=== PATIENT | male | born 1975 | race African-American/Black ===

== ENCOUNTER 2017-01-27 07:22 | Inpatient (IN) | payer OTHER ==
[~2017-01-27] VITALS: Ht 180.3 cm; Wt 78.2 kg
[2017-01-27] VITALS (10 sets, daily range): BP systolic 100–139; BP diastolic 44–83; Ht 180.3 cm; Wt 78.2 kg
[2017-01-27 08:36] LABS: BASOPHILS 0.3 % (0.0-2.0); EOSINOPHILS 1.2 % (0-7); HEMATOCRIT 42.3 % (42.0-54.0); HEMOGLOBIN 14.3 g/dL (13.5-17.5); IMMATURE GRANULOCYTES 0.1 % (0-5); MCH 29.5 pg (26.0-34.0); MCHC 33.8 g/dL (31.0-37.0); MCV 87.4 fL (80.0-100.0); MEAN PLATELET VOLUME 10.2 fL (7.4-10.4); MONOCYTES 9.6 % (2-11); NEUTROPHILS 70.8 % (40-80); PLATELET COUNT 194 10x3/uL (130-400); RBC 4.84 10x6/uL (4.20-6.10); RDW 13.8 % (11.5-14.5); WBC 7.7 10x3/uL (4.8-10.8)
[2017-01-27 08:53] LABS: APTT 22.6 SECONDS (22.8-39.4); INR 0.9 (0.85-1.17)
[2017-01-27 08:59] LABS: ALBUMIN 3.6 g/dL (3.4-5.0); ALKALINE PHOSPHATASE 48 U/L (46-116); ALT (SGPT) 21 U/L (10-68); BILIRUBIN - TOTAL 0.43 mg/dL (0.2-1.3); CALC OSMOLALITY 275 mosm/kg (275-300); CALCIUM 8.3 mg/dL (8.5-10.1); CARBON DIOXIDE 26.7 mmol/L (21.0-32.0); CHLORIDE - SERUM 103 mmol/L (98-107); GLUCOSE 96 mg/dL (74-106); POTASSIUM - SERUM 3.8 mmol/L (3.5-5.1); PROTEIN - SERUM 7.1 g/dL (6.4-8.2); SODIUM 138 mmol/L (136-145); UREA NITROGEN 13 mg/dL (7-18); eGFR NON AFRICAN AMERICAN 88 mL/min (90-120)
--- NOTE | 2017-01-27 12:23 | NUR ---
PENIAL BLOCK DONE BY DR MURILLO AT THE END OF THE CASE. DEMEROL ADMINISTERED FOR SHAKING
--- NOTE | 2017-01-27 12:45 | NUR ---
RECIEVED PT FROM RECOVERY, REPORT FROM PHONG DANIEL. POST-OP VITALS STARTED AT THIS TIME.
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
--- NOTE | 2017-01-27 19:35 | NUR ---
PT LYING IN BED AWAKE, VISITOR IN ROOM, ASSESSMENT COMPLETED, NO DISTRESS NOTED, TOBIAS DRAINING TO GRAVITY, DENIES NEEDS AT THIS TIME, SR'S UP, CL IN REACH, WILL MONITOR
--- NOTE | 2017-01-27 21:11 | NUR ---
PRN MORPHINE GIVEN FOR C/O PENILE PAIN 07/16, ANDREW WELL, CL IN REACH
--- NOTE | 2017-01-27 23:16 | NUR ---
RESTING WITH EYES CLOSED, RESP WITH EASE, NO DISTRESS NOTED, FALL PRECAUTIONS IN PLACE, CL IN REACH
[2017-01-28] VITALS: BP 118/67
[2017-01-28 04:00] VITALS: BP 128/68
--- NOTE | 2017-01-28 08:25 | NUR ---
PRN OXY IR ADMINISTERED AT THIS TIME. PT RATING CURRENT PAIN IN PENIS 01/13. WILL REASSESS. PENIS IS SWOLLEN WITH OLD DRY BLOOD AROUND TIP. PT STATES THAT HE THINKS HE MIGHT HAVE PULLED ON IT WHEN HE HAD THE MORPHINE LAST NIGHT. PROVIDED PT WITH CLEANSING WIPES. BED LOW, CALL LIGHT IN REACH, DENIES NEEDS. CPOC.
[2017-01-28 08:38] VITALS: BP 123/60
[2017-01-28] MEDS ORDERED: HYDROCODON-ACE1 EAC7 PO (12:02)
--- NOTE | 2017-01-28 12:16 | NUR ---
SITTING UP ON SIDE OF BED TALKING ON PHONE N/C VOICED AT PRESENT.
--- NOTE | 2017-01-28 12:39 | NUR ---
PIV TO L FOREARM DC'D WITH CATHETER INTACT. PROVIDED PT WITH LEG BAG FOR TOBIAS CATHETER. PT ABLE TO RETURN DEMONSTRATION FOR EMPTYING CATHETER BAG AND ATTATCHING CATHETER TO NEW BAG. F/U APPOINTMENT DISCUSSED. PT REFUSED WC. WALKED WITH PT TO FRONT AND PT GOT INTO VEHICLE WITHOUT DIFFICULTY.
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
== END 2017-01-28 12:42 | disposition home or self-care (01) | DRG 909 ==
LOC: D.ER 07:22 → D.OPS 07:22 → D.MS 07:22 → EDSTATUS 12:00 → D.MS 12:34 → D.OPS 12:35 → D.MS 12:36
PROVIDERS: Emergency Medicine; ADMIT Urology
PROC: 0VQ Male Reproductive System, Repair (ICD-10-PCS; principal; 2017-01-27 12:00)
PROC: 0TJB8ZZ Inspection of Bladder, Via Natural or Artificial Opening Endoscopic (ICD-10-PCS; principal; 2017-01-27 12:00)
PROC: 0T9B70Z Drainage of Bladder with Drainage Device, Via Natural or Artificial Opening (ICD-10-PCS; 2017-01-27 12:00)
DX: S39.840A Fracture of corpus cavernosum penis, initial encounter (principal); X58.XXXA Exposure to other specified factors, initial encounter; Z72.0 Tobacco use

== ENCOUNTER 2017-02-03 19:59 | Emergency (ER) | payer OTHER ==
[2017-01-27 14:01] VITALS: BMI 24.0
[~2017-02-03 19:59] MED LIST: HYDROCODON-ACE1 EAC7 PO
== END 2017-02-04 01:12 | disposition home or self-care (01) ==
LOC: D.ER 19:59
DX: G89.18 Other acute postprocedural pain (principal); N34.2 Other urethritis; F17.200 Nicotine dependence, unspecified, uncomplicated

== ENCOUNTER 2017-02-22 15:21 | Day surgery (SDC) | payer OTHER ==
[~2017-02-22] VITALS: Ht 170.2 cm; Wt 76.4 kg
[2017-02-22] MEDS ORDERED: ULTRAM50 MG PO (16:28)
[2017-02-22] MEDS ORDERED: PHENAZOPYRIDIN100 MG PO (16:28)
[2017-02-22 16:33] LABS: BASOPHILS 0.2 % (0.0-2.0); EOSINOPHILS 1.1 % (0-7); HEMATOCRIT 46.7 % (42.0-54.0); HEMOGLOBIN 15.7 g/dL (13.5-17.5); IMMATURE GRANULOCYTES 0.5 % (0-5); LYMPHOCYTES 10.3 % (15-50); MCH 29.5 pg (26.0-34.0); MCHC 33.6 g/dL (31.0-37.0); MCV 87.8 fL (80.0-100.0); MEAN PLATELET VOLUME 10.1 fL (7.4-10.4); MONOCYTES 8.5 % (2-11); NEUTROPHILS 79.4 % (40-80); RBC 5.32 10x6/uL (4.20-6.10); RDW 13.4 % (11.5-14.5); WBC 12.5 10x3/uL (4.8-10.8)
[2017-02-22 16:42] VITALS: BP 136/98; BMI 26.3
[2017-02-22 16:45] LABS: PLATELET COUNT 281 10x3/uL (130-400)
--- NOTE | 2017-02-22 19:16 | NUR ---
REC'D TO ROOM 2216 POST OP ABSCESS I&D TO PENIS. NKDA. IV PATENT LEFT ARM OF LR AT [facility]. DRESSING TO PENIS WRAPPED IN [place]. SUPRAPUBIC CATHETER IN PLACE CONNECTED TO A TOBIAS BAG BLOOD TINGED URINE NOTED. AT BEDSIDE. MEDS GIVEN PER JAN. ADMITTED TO DR. GALICIA WITH DR. MURILLO ON CONSULT. ALERT/ORIENTED X3 GARRETT. C/O BEING HUNGRY. SANDWICH TRAY AND DRINK SERVED 100% CONSUMED.
[2017-02-22 19:18] VITALS: BP 146/76
[2017-02-22 20:00] VITALS: BP 131/79
--- NOTE | 2017-02-22 22:00 | NUR ---
RESTING QUIETLY DENIES NEEDS.
[2017-02-22 23:25] VITALS: BP 146/76; Ht 170.2 cm; Wt 76.4 kg
[2017-02-23] VITALS: BP 129/73
--- NOTE | 2017-02-23 | NUR ---
EYES CLOSED RESPIRATIONS WITH EASE AND UNLABORED.
--- NOTE | 2017-02-23 02:55 | NUR ---
RESTING QUIETLY RESPIRATIONS WITH EASE AND UNLABORED. AT BEDSIDE.
[2017-02-23 03:00] VITALS: BP 134/62
--- NOTE | 2017-02-23 07:00 | NUR ---
REPORT RECEIVED FROM SAP BI ARCHITECT NURSE. CALL LIGHT IN REACH.
--- NOTE | 2017-02-23 07:47 | NUR ---
ASSESSMENT COMPLETED. NORCO PO WITH AM MEDS ADMINISTERED. SCDs TO BLE. FAMILY IN ROOM. CALL LIGHT IN REACH. WILL CONTINUE WITH PLAN OF CARE.
[2017-02-23 09:08] VITALS: BP 135/73
--- NOTE | 2017-02-23 09:30 | NUR ---
MOTHER REQUESTS THAT STUDENT NURSE IS NOT IN ROOM WHEN PATIENT GETS DRSG CHANGED.
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
--- NOTE | 2017-02-23 09:44 | NUR ---
CM MET WITH PATIENT AND (RADHA) REGARDING NEEDS AND PLANS FOR DISCHARGE. PATIENTS STATED SHE WILL DRIVE HIM HOME AT DISCHARGE AND THEY HAVE 4 STEPS W/RAILS TO ENTER HOME AND NO STAIRS INSIDE. PATIENT IS INDEPENDENT WITH HIS CARE AND HAS NO DME AT HOME. PATIENTS PCP IS DR. GALICIA AND PHARMACY IS [facility] ON [facility]. PATIENT CHOSE [facility] AND SIGNED THE [facility] FORM. CM WILL CONTINUE TO FOLLOW PATIENT WITH D/C NEEDS AND PLANS. PCP DR. [facility] [phone] RADHA () [phone]
--- NOTE | 2017-02-23 10:08 | NUR ---
REQUESTING IV PAIN MEDS. MORPHINE IVP PER C/O PAIN OF 9.
--- NOTE | 2017-02-23 10:54 | NUR ---
CM REASSESSMENT NOTE: REFERRAL SENT TO [facility]
--- NOTE | 2017-02-23 12:25 | NUR ---
DR. MURILLO IN ROOM TO SPEAK WITH PATIENT.
[2017-02-23 12:55] VITALS: BP 128/82
--- NOTE | 2017-02-23 13:04 | NUR ---
DILAUDID 2 MG SIVP PER ORDER. FLORAJEN PO. WILL CHANGE DRSG AFTER MED HAS KICKED IN.
--- NOTE | 2017-02-23 13:53 | NUR ---
DRSGs CHANGED PER ORDER.
[2017-02-23] MEDS ORDERED: BACTRIM DS TABL1 TAB PO (15:17)
[2017-02-23] MEDS ORDERED: HYDROCODONE-APA1 TAB PO (15:17)
--- NOTE | 2017-02-23 15:39 | NUR ---
CM NOTE: PATIENT DISCHARGING HOME TODAY WITH [facility]- DRIVING PATIENT HOME.
--- NOTE | 2017-02-23 16:28 | NUR ---
REAL FENG. DAGOBERTO INSTRUCTIONS EXPLAINED TO PATIENT AND . VERBALIZED UNDERSTANDING.
--- NOTE | 2017-02-23 16:35 | NUR ---
DISCHARGING HOME AT THIS TIME. DENIES QUESTIONS OR CONCERNS. SILVIA CUEVAS AT BEDSIDE.
--- NOTE | 2017-02-23 16:50 | NUR ---
DC'D TO VEHICLE VIA WC WITH . REFUSES WC.
== END 2017-02-23 16:50 | disposition home or self-care (01) ==
LOC: D.OPS 15:21 → D.MS 18:55 → D.OPS 02-23 16:50
PROVIDERS: Anesthesiology
DX: N48.21 Abscess of corpus cavernosum and penis (principal); Z46.6 Encounter for fitting and adjustment of urinary device

== ENCOUNTER → 2017-03-02 13:07 | Outpatient (CLI) | payer OTHER ==
[2017-02-22 23:25] VITALS: BMI 26.3
[~2017-03-02 13:07] MED LIST changes: +BACTRIM DS TABL1 TAB PO; +HYDROCODONE-APA1 TAB PO; +PHENAZOPYRIDIN100 MG PO; +ULTRAM50 MG PO
== END | disposition home or self-care (01) ==
LOC: D.RAD 13:07
DX: S37.39XA Other injury of urethra, initial encounter (principal)

== ENCOUNTER 2018-05-27 14:52 | Emergency (ER) | payer OTHER ==
[~2018-05-27] VITALS: Ht 170.2 cm; Wt 80.9 kg
[2018-05-27 14:54] VITALS: Ht 170.2 cm; Wt 80.9 kg
[2018-05-27 15:44] LABS: BASOPHILS 0.2 % (0-2); EOSINOPHILS 1.2 % (0-7); HEMATOCRIT 44.6 % (42.0-54.0); HEMOGLOBIN 15.4 g/dL (13.5-17.5); LYMPHOCYTES 34.5 % (15-50); MCH 29.1 pg (26.0-34.0); MCHC 34.5 g/dL (31.0-37.0); MCV 84.3 fL (80.0-100.0); MEAN PLATELET VOLUME 10.1 fL (7.4-10.4); MONOCYTES 13.6 % (2-11); NEUTROPHILS 50.5 % (40-80); PLATELET COUNT 245 10x3/uL (130-400); RBC 5.29 10x6/uL (4.20-6.10); RDW 13.6 % (11.5-14.5); WBC 4.9 10x3/uL (4.8-10.8)
[2018-05-27 15:58] LABS: ALBUMIN 3.7 g/dL (3.4-5.0); ALKALINE PHOSPHATASE 75 U/L (46-116); ALT (SGPT) 26 U/L (10-68); BILIRUBIN - TOTAL 0.73 mg/dL (0.2-1.3); CALC OSMOLALITY 280 mosm/kg (275-300); CALCIUM 8.5 mg/dL (8.5-10.1); CARBON DIOXIDE 27.1 mmol/L (21.0-32.0); CHLORIDE - SERUM 104 mmol/L (98-107); GLUCOSE 116 mg/dL (74-106); POTASSIUM - SERUM 3.5 mmol/L (3.5-5.1); PROTEIN - SERUM 7.6 g/dL (6.4-8.2); SODIUM 141 mmol/L (136-145); UREA NITROGEN 10 mg/dL (7-18); eGFR NON AFRICAN AMERICAN 88 mL/min (90-120)
[2018-05-27] MEDS ORDERED: NAPROSYN500 MG PO (17:46)
[2018-05-27 18:18] VITALS: BP 134/90
== END 2018-05-27 18:19 | disposition home or self-care (01) ==
LOC: D.ER 14:52
PROVIDERS: Family Medicine
DX: S70.01XA Contusion of right hip, initial encounter (principal); S40.011A Contusion of right shoulder, initial encounter; W13.2XXA Fall from, out of or through roof, initial encounter; Y93.89 Activity, other specified; Y92.89 Other specified places as the place of occurrence of the external cause; S43.401A Unspecified sprain of right shoulder joint, initial encounter

== ENCOUNTER 2018-09-07 11:31 | Emergency (ER) | payer OTHER ==
[~2018-09-07] VITALS: Ht 170.2 cm; Wt 78.2 kg
[~2018-09-07 11:31] MED LIST changes: +NAPROSYN500 MG PO
[2018-09-07 11:40] VITALS: Ht 170.2 cm; Wt 78.2 kg
[2018-09-07] MEDS ORDERED: TORADOL10 MG PO (13:51)
[2018-09-07 14:23] VITALS: BP 137/99
== END 2018-09-07 14:22 | disposition home or self-care (01) ==
LOC: D.ER 11:31
DX: M25.512 Pain in left shoulder (principal); M54.2 Cervicalgia; V43.62XA Car passenger injured in collision with other type car in traffic accident, initial encounter; Y93.89 Activity, other specified; Y92.410 Unspecified street and highway as the place of occurrence of the external cause; F17.200 Nicotine dependence, unspecified, uncomplicated

== ENCOUNTER 2019-02-08 10:27 | Emergency (ER) | payer OTHER ==
[~2019-02-08] VITALS: Ht 170.2 cm; Wt 80.9 kg
[~2019-02-08 10:27] MED LIST changes: +TORADOL10 MG PO
[2019-02-08 10:29] VITALS: Ht 170.2 cm; Wt 80.9 kg
[2019-02-08] MEDS ORDERED: ULTRAM50 MG PO (11:41)
[2019-02-08] MEDS ORDERED: CYCLOBENZAPRINE10 MG PO (11:41)
[2019-02-08 12:17] VITALS: BP 137/84
== END 2019-02-08 12:17 | disposition home or self-care (01) ==
LOC: D.ER 10:27
DX: S43.102A Unspecified dislocation of left acromioclavicular joint, initial encounter (principal); X58.XXXA Exposure to other specified factors, initial encounter; Y93.89 Activity, other specified; Y92.89 Other specified places as the place of occurrence of the external cause

== ENCOUNTER 2019-11-29 01:43 | Emergency (ER) | payer OTHER ==
[~2019-11-29] VITALS: Ht 170.2 cm; Wt 80.9 kg
[~2019-11-29 01:43] MED LIST changes: +CYCLOBENZAPRINE10 MG PO
[2019-11-29 01:47] VITALS: Ht 170.2 cm; Wt 80.9 kg
[2019-11-29] MEDS ORDERED: ZPAK PO (02:49)
[2019-11-29] MEDS ORDERED: NAPROSYN500 MG PO (02:49)
[2019-11-29 03:08] VITALS: BP 128/86
== END 2019-11-29 03:00 | disposition home or self-care (01) ==
LOC: D.ER 01:43
DX: J40 Bronchitis, not specified as acute or chronic (principal); R09.1 Pleurisy; Z72.0 Tobacco use